=== PATIENT | male | born 1970 | race Caucasian/White ===

== ENCOUNTER 2022-07-06 11:17 | Day surgery (SDC) | payer BC ==
[~2022-07-06] VITALS: Ht 182.9 cm; Wt 95.0 kg
[2022-07-06] MEDS ORDERED: PRINIVIL10 MG PO (12:44)
[2022-07-06] MEDS ORDERED: PRIL40 PO (12:44)
[2022-07-06 13:45] VITALS: BP 108/78; PULSE 67
--- NOTE | 2022-07-06 13:45 | NUR ---
PATIENT RETURNS TO BAY 1 PER CART ACCOMPANIED BY ADRIANE GUERRIER AND IS AWAKE AND ALERT. IV FLUIDS INFUSING. CALL LIGHT IN REACH. ROOM AIR SATS 97%. DENIES PAIN OR NAUSEA, DIFFICULTY SWALLOWING.
[2022-07-06 14:00] VITALS: BP 108/78; PULSE 70
--- NOTE | 2022-07-06 14:00 | NUR ---
SIPPING ON COKE. DENIES DIFFICULTY SWALLOWING.
[2022-07-06 14:10] VITALS: BP 116/89; PULSE 63
--- NOTE | 2022-07-06 14:10 | NUR ---
DR. COBB IN THE ROOM AND TALKS WITH PATIENT AND SPOUSE. ALL QUESTIONS ANSWERED. IV DISCONTINUED AND SITE IS FREE OF REDNESS OR SWELLING. PATIENT ABLE TO DRESS SELF.
--- NOTE | 2022-07-06 14:22 | NUR ---
PATIENT DISMISSED TO HOME DRIVEN BY SPOUSE AND TAKEN TO THE VEHICLE PER WHEELCHAIR AND ASSISTED INTO VEHICLE WITH INSTRUCTIONS IN HAND.
[2022-07-06 16:13] VITALS: BP 127/88; PULSE 65; TEMP 98
== END 2022-07-06 14:22 | disposition home or self-care (01) ==
LOC: SDCO 11:17
DX: K44.9 Diaphragmatic hernia without obstruction or gangrene (principal); K29.70 Gastritis, unspecified, without bleeding; K20.90 Esophagitis, unspecified without bleeding; I10 Essential (primary) hypertension
CPT/HCPCS: J2704; J7120